=== PATIENT | female | born 1995 | race Caucasian/White ===

== ENCOUNTER 2018-10-21 14:10 | Emergency (ER) | payer OTHER ==
[~2018-10-21] VITALS: Ht 167.6 cm; Wt 61.4 kg
[2018-10-21 14:35] VITALS: BP 117/80
[2018-10-21] MEDS ORDERED: AZIT-63 PO (15:18)
== END 2018-10-21 15:33 | disposition home or self-care (01) ==
LOC: ER 14:10
DX: J02.9 Acute pharyngitis, unspecified (principal)
CPT/HCPCS: 99283